=== PATIENT | male | born 1985 | race Caucasian/White ===

== ENCOUNTER 2021-06-21 08:45 | Outpatient (CLI) | payer MEDICAID, SELFPAY ==
--- NOTE | 2021-06-21 10:59 | NEURO ---
NCS and/or EMG Patient Report Ordering Doctor: Bonnie Rodriguez NP DATE OF SERVICE: 06/21/21 Indication: Bilateral hand pain, numbness and loss of dexterity. Symptoms have been present off and on for year, but worsening of late. Symptoms are symmetric in quality and severity. Evaluate for entrapment neuropathy. Findings: Nerve conduction studies were performed in the right and left upper extremities. The right median motor study recording the abductor pollicis brevis showed a borderline amplitude, prolonged distal latency and normal conduction velocity. The right ulnar motor study recording the abductor digiti minimi showed a normal amplitude, normal distal latency and normal conduction velocity. No conduction block or focal slowing was present across the elbow. Right median-ulnar lumbrical / interosseous motor latencies showed a prolonged median latency compared to the ulnar. The right median sensory response recording digit two showed an absent response. The right ulnar sensory response recording digit five showed a normal amplitude, latency and conduction velocity. The right radial sensory response recording over the extensor snuff box showed a normal amplitude, latency and conduction velocity. The left median motor study recording the abductor pollicis brevis showed a normal amplitude, prolonged distal latency and mildly slowed conduction velocity. The left ulnar motor study recording the abductor digiti minimi showed a normal amplitude, normal distal latency and normal conduction velocity. No conduction block or focal slowing was present across the elbow. The left median sensory response recording digit two showed a reduced amplitude, prolonged latency and markedly slowed conduction velocity. The left ulnar sensory response recording digit five showed a normal amplitude, latency and conduction velocity. The left radial sensory response recording over the extensor snuff box showed a normal amplitude, latency and conduction velocity. Needle EMG of the right upper extremity and cervical paraspinal muscles was performed. No denervation was seen in any muscle. All motor unit morphology, activation and recruitment patterns were normal. Needle EMG of the left upper extremity was omitted given the paucity of findings on the right. Impression: This is an abnormal study. 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 These findings are compatible with the clinical diagnosis of carpal tunnel syndrome. In addition, there is no electrophysiologic evidence of a superimposed cervical radiculopathy in the right upper extremity. Maurilio Ceja D.O. Multi Select Codes Neurology Neurology Interp Codes: 33670-76 Musc test done w/n test comp (interp) and 16261-84 Nr lenyj test 11-12 studies (interp)
== END 2021-06-21 23:59 | disposition home or self-care (01) ==
PROVIDERS: Visit Provider Nurse Practitioner Adult Health
DX: M79.2 Neuralgia and neuritis, unspecified (principal); R20.2 Paresthesia of skin
CPT/HCPCS: 95886; 95912

== ENCOUNTER 2021-07-27 08:50 | Day surgery (SDC) | payer MEDICAID, SELFPAY ==
[2021-07-27] MEDS: Lactated Ringers 1,000 ML 15 ML IV (09:10)
[2021-07-27 09:25] VITALS: BP 122/83; PULSE 81; RESP 18; TEMP 36.7; O2SAT 97; BMI 25.7
[2021-07-27 09:36] LABS: Amphetamine Urine VISTA POSITIVE (<1000 ng/mL); Barbiturate Urine VISTA NEGATIVE (< 200 ng/mL); Benzodiazepine Urine VISTA NEGATIVE (< 200 ng/mL); Cocaine Urine VISTA NEGATIVE (< 300 ng/mL); Ecstacy Urine VISTA NEGATIVE (< 500 ng/mL); Methadone Urine VISTA NEGATIVE (< 300 ng/mL); PCP Urine VISTA NEGATIVE (< 25 ng/mL); THC Urine VISTA POSITIVE (< 50 ng/mL); Vista UDS pH Range 7
== END 2021-07-27 23:59 | disposition home or self-care (01) ==
LOC: SDC 08:51 → AC 08:56
PROVIDERS: Visit Provider Orthopaedic Surgery
DX: Z01.818 Encounter for other preprocedural examination (principal); U07.1 COVID-19
CPT/HCPCS: J2405; 80307; 87426; J7120

== ENCOUNTER → 2025-04-15 | Outpatient (CLI) | payer MEDICAID, SELFPAY ==
[2025-04-15 16:42] LABS: Color, Urine Yellow (Yellow); Glucose, Dipstick Normal (Normal); Ketone-Dipstick Negative (Negative); Leukocyte Esterase-Dipstick Negative /ul (Negative); Nitrite-Dipstick Negative (Negative); Occult Blood-Urine Negative /ul (Negative); Protein-Dipstick 30 mg/dl (Negative); Specific Gravity, Urine 1.015 (1.002-1.030); Urine Bilirubin Dipstick Negative (Negative)
[2025-04-15 16:46] LABS: Hematocrit 52.9 % (40-54); Hemoglobin 17.9 g/dL (13.0-16.5); Immature Granulocytes Count 0.050 X10^3/uL (0.0-0.0); Mean Corp Hgb Conc 33.8 g/dL (32-36); Mean Corpuscular Volume 92.5 fL (80-94); Mean Platelet Vol. 11.0 fl (6.2-12.0); NRBC Flagged by Analyzer 0 % (0-5); Platelet Count 289 K/mm3 (150-450); RBC Distribution Width CV 12.5 % (11.6-14.6); RBC Distribution Width SD 42.4 fl (35.1-43.9); Red Blood Count 5.72 M/mm3 (4.6-6.2); White Blood Count 13.7 K/mm3 (4.4-11.0)
[2025-04-15 17:35] LABS: AST(SGOT) 67 U/L (<=37); Alanine Aminotransfer ALT/SGPT 102 U/L (<=46); Albumin, Serum 4.7 g/dL (3.5-5.0); Alkaline Phosphatase 81 U/L (40-129); Anion Gap 9 (7-18); BUN 12 mg/dL (4-19); BUN/Creat Ratio 8.5 RATIO (10-20); Calcium,Total 10.0 mg/dL (7.6-11.0); Carbon Dioxide 27.0 mmol/L (20.0-29.0); Chloride 102 mmol/L (96-106); Follicle Stimulating Hormone 2.4 mIU/mL; Globulin 3.6 g/dL (2.2-4.2); Glucose 94 mg/dL (70-99); PSA,Total- Diagnostic 0.43 ng/mL (0.00-4.00); Potassium 4.5 mmol/L (3.5-5.1)
[2025-04-22 09:08] LABS: PROLACTIN 6.6 ng/mL (3.9-22.7); Testosterone, % Free 1.47 % (1.50-4.20); Testosterone, Free 2.04 ng/dL (5.00-21.00)
== END | disposition home or self-care (01) ==
LOC: VSLAB 13:49
DX: Z13.6 Encounter for screening for cardiovascular disorders (principal); N52.9 Male erectile dysfunction, unspecified; R39.9 Unspecified symptoms and signs involving the genitourinary system
CPT/HCPCS: 36415; 80053; 81002; 83001; 83002; 84146; 84153; 84402; 84403; 84443; 85025; 87086; 87088